=== PATIENT | male | born 1980 | race Caucasian/White ===

== ENCOUNTER 2018-04-07 05:32 | Day surgery (SDC) | payer OTHER ==
[~2018-04-07] VITALS: Ht 177.8 cm; Wt 88.5 kg
[2018-04-07 08:42] VITALS: BP 128/76
[2018-04-07 11:30] VITALS: BP 128/76
--- NOTE | 2018-04-08 13:41 | O ---
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 PROCEDURE: Left knee arthroscopy with limited debridement of chondromalacia and limited notchplasty for ACL impingement and open debridement of prominent bony fixation pin lateral femoral epicondyle. SURGEON: Chang Merrill MD INDICATIONS: This very active, fit 37-year-old gentleman underwent previous left knee ACL reconstruction elsewhere a number of years ago. He has a very good result with a stable solid knee and he has returned to vigorous athletic activities. However, he has significant pain at the lateral margin of the knee. Some of this may be consistent with meniscus or cartilage surface damage and some of his symptoms may be consistent with irritation from a very prominent metal fixation device, which was used at the time of his ACL reconstruction. X-rays revealed a metallic fixation device with about 2 cm embedded deeply in the bone and about 1 cm extending outside the bone adjacent to the lateral aspect of the femoral cortex causing some possible soft tissue impingement. We have discussed treatment options and elected to go ahead with arthroscopic evaluation and debridement as well as removal or adjustment in the metal fixation if possible. DESCRIPTION OF PROCEDURE: The patient was taken to the Operating Room where he was placed under general anesthesia. Prophylactic intravenous antibiotics were administered. The left knee and leg were meticulously prepped and draped and a thigh tourniquet applied and inflated to 300 mmHg. A lateral inflow cannula was placed and the knee was inspected with arthroscope and compartments documented with arthroscopic photography. The medial compartment revealed good cartilage on the medial femoral condyle and the medial tibial plateau. The medial meniscus was intact and stable without any significant damage. No debridement here was necessary. The lateral compartment also revealed good cartilage on the lateral femoral condyle and the lateral tibial plateau. The lateral meniscus appeared to be intact and stable without any significant damage. No debridement here was necessary. The patellofemoral articulation revealed some cartilage [address] [address] OPERATIVE REPORT Name: GABBY YUN Room #: DEP [facility]#: [id number] Admission: 04/07/18 Attend Phys: Chang Merrill MD Discharge: 04/07/18 Date of : 78 Report #: [id number] damage in the trochlear region and minor fraying on the patella. Some limited debridement with a small shaver was performed. The defect on the trochlea was only about 8-10 mm in width and was grade 2 to grade 3 damage in its deepest portion. No other significant abnormalities here were noted. The patellar tracked nicely and appeared to be stable. The old anterior cruciate ligament graft seemed to be in good position and was functional. There was some narrowing of the notch due to bony spurring, which caused some impingement on the graft and would be worrisome for eventual wear and failure. Given this, I did a limited lateral notchplasty which opened the notch nicely and freed up the ACL well. No other significant intra-articular problems were identified. At this point, attention was directed to the lateral aspect of the knee and C-arm was brought into the field. The metal fixation device could be visualized with the tip extending about a cm out into the soft tissues just at the flare of the lateral femoral condyle. A skin incision was made directly over this just anterior to the iliotibial band. The wire fixation could be palpated digitally, but was covered partially in hypertrophic bony spurring. The bone surrounding this was debrided with a rongeur exposing more of the metal. I attempted to simply cut off the tip of the metal, but had difficulty due to limited exposure and the limited ability to get around the device because of surrounding bone. I considered making more of a bony or taking a cannulated reamer and trying to over ream the device, but I felt this would cause excessive bone weakening and a localized stress riser. Ultimately, after multiple attempts to cut off the prominent end, I felt the best approach was simply to bend this down flat to the bony surface to avoid the prominence. This was accomplished with a small punch and a mallet, bending the tip over down to bone embedding this in the surrounding hypertrophic bony spurring. I think this will relieve any soft tissue impingement and probably safer than trying to excise the entire implant. The small wound was copiously irrigated. Good hemostasis was established. The tourniquet was deflated. The fascia was closed with multiple 2-0 Monocryl sutures. The subcutaneous tissues were also closed with 2-0 Monocryl. The skin was closed with 4-0 nylon. A sterile dressing was applied. The patient was awakened and returned to Recovery Room in good condition. <ELECTRONICALLY SIGNED> By: Chang Merrill MD 04/08/18 1341 [id number] Chang Merrill MD /nt
== END 2018-04-07 12:35 | disposition home or self-care (01) ==
LOC: OR 05:32 → TBA 05:32 → OR 09:06
DX: M94.262 Chondromalacia, left knee (principal); M25.862 Other specified joint disorders, left knee; T84.195A Other mechanical complication of internal fixation device of left femur, initial encounter; Y83.8 Other surgical procedures as the cause of abnormal reaction of the patient, or of later complication, without mention of misadventure at the time of the procedure
CPT/HCPCS: 50010; 50101; 50405; 51038; 54170; 56525; 56526; 57103; 62110; 62900; 70005